=== PATIENT | female | born 1965 | race Caucasian/White ===

== ENCOUNTER 2025-04-02 13:39 | Inpatient (IN) | payer OTHER ==
[~2025-04-02] VITALS: Ht 162.6 cm; Wt 54.4 kg
[2025-04-02 14:08] LABS: BASOPHILS % (AUTO) 0.4 % (0.0-2.0); EOSINOPHILS % (AUTO) 0.5 % (0.0-6.0); HEMATOCRIT 40 % (33-45); HEMOGLOBIN 13.9 g/dL (11.5-14.8); LYMPHOCYTES % (AUTO) 13.7 % (20.0-44.0); MEAN CORPUSCULAR HEMOGLOBIN 30 PG (26.0-33.0); MEAN CORPUSCULAR HGB CONC 35 g/dl (31.0-36.0); MEAN CORPUSCULAR VOLUME 86 fL (82-100); MONOCYTES # (AUTO) 0.4 K/uL (0.1-1.30); MONOCYTES % (AUTO) 5.6 % (2.0-12.0); NEUTROPHILS # (AUTO) 5.9 K/uL (1.8-8.9); NEUTROPHILS % (AUTO) 79.8 % (43.0-81.0); PLATELET COUNT (AUTO) 271 K/uL (150-450); RED BLOOD CELL COUNT(AUTO) 4.66 MIL/uL (4.0-5.2); WHITE BLOOD COUNT (AUTO) 7.4 K/uL (4.3-11.0)
[2025-04-02 14:18] LABS: INR 1.01 (0.91-1.10); PARTIAL THROMBOPLASTIN TIME 30.8 SEC (24.3-34.3); PROTHROMBIN TIME 10.7 SECS (9.2-11.1)
[2025-04-02 14:20] LABS: CALCIUM, SERUM 9.4 mg/dL (8.5-10.1); CARBON DIOXIDE 26 mmol/L (21-32); CHLORIDE 103 mmol/L (98-107); CREATININE 0.7 mg/dL (0.6-1.3); GLUCOSE 131 mg/dL (74-106); POTASSIUM 3.8 mmol/L (3.5-5.1); SODIUM SERUM 140 mmol/L (136-145); UREA NITROGEN, BLOOD 13 mg/dL (7-18)
[2025-04-02] MEDS ORDERED: IOHEXOL-350 100 ML VIAL IV ONE (14:24)
[2025-04-02] MEDS ORDERED: IV NS 0.9% 250 ML IV ONE (14:25)
[2025-04-02 14:57] LABS: APPEARANCE,URINE CLEAR (CLEAR); BILIRUBIN,URINE NEGATIVE (NEGATIVE); BLOOD, URINE 3+ Ery/uL (NEGATIVE); COLOR,URINE YELLOW (YELLOW); KETONES,URINE NEGATIVE (NEGATIVE); LEUKOCYTE ESTERASE ,URINE NEGATIVE (NEGATIVE); NITRITE, URINE NEGATIVE (NEGATIVE); PROTEIN,URINE NEGATIVE (NEGATIVE); UGLUCOSE NEGATIVE (NEGATIVE); UROBILINOGEN,URINE 0.2 EU/dL (0.2)
[2025-04-02 15:31] LABS: RBC,URINE 51-80 /HPF (0-2)
[2025-04-02 15:32] LABS: ADD URINE CULTURE NO; BACTERIA,URINE Rare /HPF (None Seen); SQUAMOUS EPITHELIAL CELL,UR Rare /HPF (None Seen); WBC,URINE 0-2 /HPF (0-3)
[2025-04-02 16:00] VITALS: O2SAT 98
[2025-04-02] MEDS ORDERED: ACETAMINOPHEN 325 MG TABLET PO PRN (18:30)
[2025-04-02] MEDS ORDERED: ONDANSETRON HCL/PF 4 MG/2 ML VIAL IVP PRN (18:30)
[2025-04-02] MEDS ORDERED: methylPREDNISolone SOD SUCC 125 MG/2ML VIAL IV SCH (19:30)
[2025-04-02 20:00] VITALS: BP 154/76; TEMP 97.9; O2SAT 100
[2025-04-02] MEDS: SOLU-MEDROL 500 MG IN NS 100 ML IV SCH (20:18)
[2025-04-03] VITALS (7 sets, daily range): BP systolic 126–147; BP diastolic 71–81; TEMP 97.7–99.5; O2SAT 96–98
[2025-04-03] MEDS: PANTOPRAZOLE 40 MG TABLET.DR PO SCH (07:39)
[2025-04-03 07:41] LABS: BASOPHILS % (AUTO) 0.1 % (0.0-2.0); EOSINOPHILS % (AUTO) 0.1 % (0.0-6.0); HEMATOCRIT 40 % (33-45); HEMOGLOBIN 13.5 g/dL (11.5-14.8); LYMPHOCYTES # (AUTO) 0.5 K/uL (0.8-4.8); LYMPHOCYTES % (AUTO) 9.3 % (20.0-44.0); MEAN CORPUSCULAR HEMOGLOBIN 29 PG (26.0-33.0); MEAN CORPUSCULAR HGB CONC 34 g/dl (31.0-36.0); MEAN CORPUSCULAR VOLUME 86 fL (82-100); MONOCYTES % (AUTO) 0.7 % (2.0-12.0); NEUTROPHILS # (AUTO) 4.8 K/uL (1.8-8.9); NEUTROPHILS % (AUTO) 89.8 % (43.0-81.0); PLATELET COUNT (AUTO) 283 K/uL (150-450); RED BLOOD CELL COUNT(AUTO) 4.58 MIL/uL (4.0-5.2); RED CELL DISTRIBUTION WIDTH 14.1 % (11.5-15.0); WHITE BLOOD COUNT (AUTO) 5.3 K/uL (4.3-11.0)
[2025-04-03] MEDS: AMLODIPINE BESYLATE 5 MG TABLET PO SCH (08:08)
[2025-04-03 08:12] LABS: THYROID STIMULATING HORMONE 0.84 uIU/mL (0.358-3.74)
[2025-04-03 08:31] LABS: CALCIUM, SERUM 9.2 mg/dL (8.5-10.1); CREATININE 0.7 mg/dL (0.6-1.3); PHOSPHORUS 3.5 mg/dL (2.5-4.9); POTASSIUM 3.8 mmol/L (3.5-5.1)
[2025-04-04 00:39] VITALS: BP 136/76; TEMP 97.9; O2SAT 98
[2025-04-04 04:53] VITALS: BP 133/65; TEMP 97.5; O2SAT 97
[2025-04-04 07:30] VITALS: BP 136/73; TEMP 98.1; O2SAT 97
[2025-04-04 16:00] VITALS: BP 117/54; TEMP 98.1; O2SAT 95
[2025-04-04 20:00] VITALS: BP 104/58; TEMP 98.4; O2SAT 97
[2025-04-05] MEDS: MAG HYDROX/AL HYDROX/SIMETH 30 ML UDC PO PRN (06:00)
[2025-04-05 07:30] VITALS: BP 116/68; TEMP 97.9; O2SAT 97
[2025-04-05 08:26] VITALS: BP 116/68
[2025-04-05] MEDS: MAGNESIUM HYDROXIDE 30 ML UDC PO PRN (08:26)
== END 2025-04-05 10:45 | disposition home health service (06) | DRG 43 ==
LOC: ER 13:44 → TELE 17:10 → MED 04-04 09:48
PROVIDERS: ADMIT Nurse Practitioner Family; ATTEND Internal Medicine
DX: G35 Multiple sclerosis (principal); Q28.1 Other malformations of precerebral vessels; I10 Essential (primary) hypertension; Z86.73 Personal history of transient ischemic attack (TIA), and cerebral infarction without residual deficits; R53.1 Weakness; R26.81 Unsteadiness on feet
CPT/HCPCS: 36415; 70496-TC; 70498-TC; 71045-TC; 80048-TC; 81001; 82962-TC; 83735-TC; 84100-TC; 84443-TC; 84484-TC; 85025-TC; 85730-TC; 97112-TC; 97116-TC; 97530-TC; A4223; G0378; J2919; J7030; J7040; J7050; Q9967